=== PATIENT | female | born 1960 | race Caucasian/White ===

== ENCOUNTER → 2016-12-14 | Outpatient (CLI) | payer BC ==
[~2016-12-14] MED LIST: DOXY-233 PO; DULO60CA6 PO; IBUP200T48 PO; MTF500T PO; MULT-974 PO; TRAZ-144 PO
--- NOTE | 2016-12-15 19:54 | Diagnostic Imaging Report ---
Bilateral screening mammogram The current study was also evaluated with a Computer Aided Detection (CAD) system. INDICATION: Screening. No current complaints stated on the questionnaire. COMPARISON: 10/15/2015. FINDINGS: The breasts are composed of heterogeneously dense parenchyma which may decrease mammographic sensitivity. The medial aspect of the breasts is less dense. No developing mass, architectural distortion, or suspicious cluster of calcifications. Allowing for technique and positional differences, no suspicious change is seen. IMPRESSION: No significant change. ACR BI-RADS Category 2: Benign findings. Result letter will be mailed to the patient. Note: At least 10% of breast cancer is not imaged by mammography. Dictated by: Dictated on workstation # [id number]
== END ==
LOC: RAD 15:46
PROVIDERS: ATTEND Nurse Practitioner Community Health
DX: Z12.31 Encounter for screening mammogram for malignant neoplasm of breast (principal)
CPT/HCPCS: 77067

== ENCOUNTER → 2018-03-16 | Outpatient (CLI) | payer BC, OTHER ==
--- NOTE | 2018-03-16 12:55 | Diagnostic Imaging Report ---
INDICATION: Routine screening. Comparison is made with prior study from 12/14/2016 and 10/15/2015. 2-D and 3-D bilateral screening mammography was performed with Computer Aided Detection (CAD) system. FINDINGS: Both breasts are heterogeneously dense, limiting the sensitivity of mammography. The parenchymal pattern appears stable. No mass or malignant appearing microcalcifications are seen. The axillae are unremarkable. IMPRESSION: No mammographic features suspicious for malignancy are identified. ACR BI-RADS Category 1: Negative. Result letter will be mailed to the patient. Note: At least 10% of breast cancer is not imaged by mammography. Dictated by: Dictated on workstation # [id number]
== END ==
LOC: RAD 10:32
PROVIDERS: ATTEND Nurse Practitioner Community Health
DX: Z12.31 Encounter for screening mammogram for malignant neoplasm of breast (principal)
CPT/HCPCS: 77067

== ENCOUNTER → 2019-05-18 | Outpatient (CLI) | payer OTHER ==
--- NOTE | 2019-05-21 11:23 | Diagnostic Imaging Report ---
INDICATION: Routine screening. COMPARISON: 03/16/2018 and 12/14/2016. TECHNIQUE: 2D and 3D bilateral screening mammography was performed with CAD. FINDINGS: Scattered fibroglandular densities are identified bilaterally. The parenchymal pattern is stable. No mass or malignant appearing microcalcifications are seen. The axillae are unremarkable. IMPRESSION: No mammographic features suspicious for malignancy are identified. ACR BI-RADS Category 1: Negative. Result letter will be mailed to the patient. Note: At least 10% of breast cancer is not imaged by mammography. Dictated by: Dictated on workstation # [id number]
== END ==
LOC: RAD 14:54
PROVIDERS: ATTEND Nurse Practitioner Community Health
DX: Z12.31 Encounter for screening mammogram for malignant neoplasm of breast (principal)
CPT/HCPCS: 77067

== ENCOUNTER → 2023-04-20 | Outpatient (CLI) | payer OTHER ==
[~2023-04-20] VITALS: Ht 162.6 cm; Wt 118.2 kg
[~2023-04-20] MED LIST changes: +LIDOCAINE 1% INJ 10 ML VIAL INJ ONE; +LIDOCAINE 1% INJ 10 ML VIAL ONE
--- NOTE | 2023-04-20 13:21 | Diagnostic Imaging Report ---
INDICATION: Left breast mass. Patient presents for ultrasound-guided biopsy. DETAILS OF THE PROCEDURE: The patient was brought to the sonographic suite and placed on the table in the supine position. Ultrasound imaging over the left breast was performed to evaluate for an appropriate entry site. The left breast was then prepped and draped in the usual sterile fashion. A small amount of 1% lidocaine was utilized for local anesthesia. A total of four core biopsies was obtained of the hypoechoic mass at the 7 o'clock location of the left breast utilizing a 14-gauge Achieve needle. A marker clip was then deployed. Hemostasis was obtained using manual compression. The patient tolerated the procedure well and was sent for a post procedure mammogram in satisfactory condition. IMPRESSION: Successful ultrasound-guided core biopsy of the hypoechoic nodule at the 7 o'clock location of the left breast. Pathology results are currently pending. Dictated by: Dictated on workstation # [id number]
--- NOTE | 2023-04-21 10:38 | Diagnostic Imaging Report ---
INDICATION: Left breast nodule, status post ultrasound-guided left breast biopsy. Unilateral left 2-D CC and ML mammography was performed after patient underwent ultrasound-guided left breast biopsy. There is a marker clip lower inner left breast anterior depth. IMPRESSION: Marker clip placement, status post ultrasound-guided left breast biopsy. Dictated by: Dictated on workstation # [id number]
== END ==
LOC: RAD 12:12
PROVIDERS: ATTEND Nurse Practitioner Family
DX: N63.24 Unspecified lump in the left breast, lower inner quadrant (principal)
CPT/HCPCS: 19083; 77065; G0279

== ENCOUNTER 2023-05-19 07:03 | Day surgery (SDC) | payer MEDICAID, OTHER ==
[~2023-05-19] VITALS: Ht 154.9 cm; Wt 76.2 kg
[2023-05-19] VITALS (12 sets, daily range): BP systolic 129–171; BP diastolic 69–107
[~2023-05-19 07:03] MED LIST changes: -ACHD5005 PO; -DOCU-143 PO
[2023-05-19] MEDS ORDERED: ceFAZolin INJECTION 2,000 MG in NS (IVPB) 50 ML 50 ML IV ONE (07:30)
[2023-05-19] MEDS ORDERED: LACTATED RINGERS 1,000 ML 1,000 ML IV PRN (07:30)
--- NOTE | 2023-05-19 07:41 | Progress Note-Pre Operative ---
Pre-Operative Progress Note Date H&P Reviewed: May 19, 2023 Time H&P Reviewed: 07:41 History & Physical: H&P Reviewed, Patient Examed, No changes noted Pre-Operative Diagnosis: left breast infiltrating ductal carcinoma CHRISTINA GOULD DO May 19, 2023 07:41
[2023-05-19] MEDS ORDERED: LIDOCAINE 1% INJ 10 ML VIAL INJ ONE (08:15)
[2023-05-19] MEDS ORDERED: LIDOCAINE/EPI 1%-1:200,000 (XYLOCAINE) 30 ML VIAL ONE (12:23)
[2023-05-19] MEDS ORDERED: LIDOCAINE/EPI 1%-1:200,000 (XYLOCAINE) 30 ML VIAL INJ ONE (12:26)
[2023-05-19] MEDS ORDERED: SEVOFLURANE (ULTANE) 15 ML INHAL SOLN ONE ×2 (12:37→14:12)
[2023-05-19] MEDS ORDERED: proPOfol INJECTION 200 MG/20 ML VIAL IV ONE (12:37)
[2023-05-19] MEDS ORDERED: LIDOCAINE PF 2% 5 ML VIAL ONE (12:37)
[2023-05-19] MEDS ORDERED: fentaNYL INJECTION 100 MCG/2 ML VIAL ONE (12:38)
[2023-05-19] MEDS ORDERED: MIDAZOLAM INJ 2 MG/2 ML VIAL ONE (12:38)
--- NOTE | 2023-05-19 12:38 | Diagnostic Imaging Report ---
INDICATION: Left breast carcinoma. The patient is status post ultrasound-guided left breast hookwire localization. Unilateral left 2-D CC and ML mammography was performed. There is a hookwire entering from the medial left breast adjacent to the marker clip in the medial left breast. IMPRESSION: Hookwire localization left breast, as described. Dictated by: Dictated on workstation # [id number]
[2023-05-19] MEDS ORDERED: SUFENTANIL 50 MCG/ML IV ONE (12:40)
--- NOTE | 2023-05-19 14:28 | Anesthesia-General Post-Op ---
General Patient Condition Mental Status/LOC: Same as Preop Cardiovascular: Satisfactory Nausea/Vomiting: Absent Respiratory: Satisfactory Pain: Controlled Complications: Absent Post Op Complications Complications None Follow Up Care/Instructions Patient Instructions None needed. Anesthesia/Patient Condition Patient Condition Patient is doing well, no complaints, stable vital signs, no apparent adverse anesthesia problems. No complications reported per nursing. GUILLERMO ROACH CRNA May 19, 2023 14:28
[2023-05-19] MEDS ORDERED: morphine INJ 10 MG/ML 1ML (SYR OR VIAL) IVP ONE (14:30)
[2023-05-19] MEDS ORDERED: MEPERIDINE INJ 50 MG/ML VIAL IVP ONE (14:30)
[2023-05-19] MEDS ORDERED: ONDANSETRON INJECTION 4 MG/2 ML (SDV) IVP PRN (14:30)
--- NOTE | 2023-05-19 14:38 | Diagnostic Imaging Report ---
INDICATION: Left breast carcinoma, status post lumpectomy. Specimen radiograph was submitted. The hookwire as well as a marker clip are located within the specimen. IMPRESSION: Specimen radiograph, as described. Dictated by: Dictated on workstation # [id number]
[2023-05-19] MEDS ORDERED: morphine INJ 10 MG/ML 1ML (SYR OR VIAL) ONE (14:53)
[2023-05-19] MEDS ORDERED: DOCU-143 PO (15:07)
[2023-05-19] MEDS ORDERED: ACHD5005 PO (15:07)
--- NOTE | 2023-05-19 15:09 | Discharge Inst-Simple/Standard ---
Discharge Inst-Standard Discharge Medications New, Converted or Re-Newed RX: Transmitted to Pharmacy Patient Instructions/Follow Up Plan of Care/Instructions/FU: 2 weeks Meche Activity as Tolerated: No Discharge Diet: Regular Diet Other Inst to Patient Follow up Appt: Make appointment for 2 week. Instructions: No lifting greater than 10 pounds. No strenuous activity. May shower in 24 hours, no tub bath or soaking. Use incentive spirometer at home as directed. No Smoking Wear sports bra daily and keep breasts supported. Skin/Wound Care: You have special glue over your incision that will fall off on it's own. Symptoms to Report: Appetite Changes, Extremity Discoloration, Numbness/Tingling, Swelling Increased, Bleeding Excessive, Eyesight Changes, Pain Increased, Urine Color Change, Constipation(Persistent), Fever over 101 degree F, Pain/Pressure in chest, Urinating Difficulty, Cough Up/Vomit Blood, Heart Beat Irreg/Pounding, Pain/Pressure in jaw, Vaginal Bleeding Increase, Cramps in feet or legs, Lightheadedness, Pain/Pressure in shoulder, Diarrhea(Persistent), Memory Changes Suddenly, Questions/Concerns, Weight gain consecutive days, Dizziness/Fainting, Nausea/Vomiting, Shortness of Breath, Weight gain over 2 pounds If questions or concerns contact your physician Or seek help at emergency department. CHRISTINA GOULD DO May 19, 2023 15:09
--- NOTE | 2023-05-21 07:13 | OPERATIVE REPORT ---
DATE OF SERVICE: 05/19/2023 PREOPERATIVE DIAGNOSIS: Infiltrating ductal carcinoma of the left breast. POSTOPERATIVE DIAGNOSIS: Infiltrating ductal carcinoma of the left breast. PROCEDURE: Left breast lumpectomy, wire localized with sentinel node biopsy. SURGEON: Cisco Mcgregor DO ANESTHESIA: General. ESTIMATED BLOOD LOSS: Minimal. COMPLICATIONS: None. INDICATIONS: The patient is a 62-year-old female with left breast cancer. She understands risks and benefits of procedure and wished to proceed. Consent was signed in chart. DESCRIPTION OF PROCEDURE: The patient was taken to the operating suite. She was prepped and draped in sterile fashion. Timeout was performed. A Bharaht counter was used to isolate local involvement and prior to incision, methylene blue injected, 4 mL total, 1 mL in four locations and near the areolar complex. Once Bharath counter found hot spot, a #15 blade scalpel was used to make an incision after local anesthetic was infiltrated. Cautery was used to dissect down through subcutaneous tissues in the left axilla and the guidewire was used to continue to isolate node. Hemostats used to dissect down through subcutaneous tissues when the node was encountered. This was able to grasp and started to be elevated and cautery used to dissect around it, removing a large node in its entirety. In-vivo count on the node was 1651. The-ex vivo count was 1743. No other counts within 10% of this area present. No other palpable nodes present within the left axilla. The wound was then irrigated with sterile water. The subcutaneous tissues were then reapproximated using 3-0 Vicryl. Skin was then closed using 4-0 Monocryl in running subcuticular fashion. Skin Affix was placed over that incision. The patient then had local anesthetic infiltrated on the left breast near the wire. A #15 blade scalpel was used to make a skin incision incorporating the wire into the incision. Skin flaps were made with cautery around the wire and then circumferentially following the wire down until the entire wire and breast mass was completely excised. This was tagged with a double suture anteriorly, the short suture superiorly and long suture lateral. The wound was irrigated with copious amounts of irrigation. Hemostasis was achieved. Clips were placed within the cavity where the excision was performed. The subcutaneous tissues then reapproximated using 3-0 Vicryl. The skin was then closed using 4-0 Monocryl in running subcuticular fashion. Skin Affix was then placed over the incisions. The patient tolerated the procedure well without any complications. A sterile bandage was applied. Job ID: [id number] DocumentID: [id number] Dictated Date: 05/20/2023 22:45:42 Steam Oven Operator Date: 05/21/2023 07:11:00 Dictated By: DO SINCERE GOMEZ
== END 2023-05-19 16:30 | disposition home or self-care (01) ==
LOC: SDC 07:03
PROVIDERS: ATTEND Surgery
DX: C50.912 Malignant neoplasm of unspecified site of left female breast (principal); E66.9 Obesity, unspecified; Z68.31 Body mass index [BMI] 31.0-31.9, adult
CPT/HCPCS: 76098; 82947; 87081; 88307; 88342

== ENCOUNTER → 2023-05-19 | Outpatient (CLI) | payer MEDICAID, OTHER ==
[~2023-05-19] MED LIST changes: +ACHD5005 PO; +CALC-308 PO; +CHOL1LIQ MC; +DOCU-143 PO; -LIDOCAINE 1% INJ 10 ML VIAL INJ ONE; -LIDOCAINE 1% INJ 10 ML VIAL ONE; +LISI10TA25 PO; +TUME1CAP PO; +VITA-189 PO
--- NOTE | 2023-05-19 09:20 | Diagnostic Imaging Report ---
INDICATION: Left breast carcinoma. 1.0 mCi technetium 99m Lymphoseek was injected in 4 separate aliquots in a left periareolar distribution. Imaging was performed demonstrating migration of activity into the left axilla. This was marked on the patient's skin. IMPRESSION: Left breast lymphoscintigraphy for identification of sentinel node. Dictated by: Dictated on workstation # [id number]
== END ==
LOC: CARD 08:00
PROVIDERS: ATTEND Surgery
DX: C50.912 Malignant neoplasm of unspecified site of left female breast (principal)
CPT/HCPCS: 78195

== ENCOUNTER → 2023-05-19 | Outpatient (CLI) | payer MEDICAID, OTHER ==
--- NOTE | 2023-05-19 10:18 | Diagnostic Imaging Report ---
INDICATION: Left breast carcinoma. Patient presents for ultrasound-guided hookwire localization. Patient was brought to the sonographic room placed on the table in the supine position. Ultrasound imaging of the left breast was performed to evaluate appropriate entry site. The left breast was then prepped and draped in usual sterile fashion. Small amount 1% lidocaine was utilized for local anesthesia. Localizing needle was advanced into the left breast at the 7 o'clock location and needle was placed through the hypoechoic nodule previously biopsied. The hookwire was then placed through the needle and deployed. The needle was then removed over the hookwire. The hookwire was affixed to the patient's skin. Patient tolerated the procedure well and was sent to same day surgery in satisfactory condition. IMPRESSION: Successful ultrasound guided hookwire localization of a hypoechoic nodule 7 o'clock location left breast. Dictated by: Dictated on workstation # [id number]
== END ==
LOC: RAD 09:00
PROVIDERS: ATTEND Surgery
DX: C50.912 Malignant neoplasm of unspecified site of left female breast (principal)
CPT/HCPCS: 19285

== ENCOUNTER 2023-06-09 13:10 | Outpatient (RCR) | payer MEDICAID ==
[~2023-06-09 13:10] MED LIST changes: +ACHD5005 PO; +DOCU-143 PO
== END 2023-06-14 | disposition home or self-care (01) ==
LOC: ONC 13:10
PROVIDERS: ATTEND Internal Medicine Hematology & Oncology
DX: C50.912 Malignant neoplasm of unspecified site of left female breast (principal); T81.40XD Infection following a procedure, unspecified, subsequent encounter; E66.9 Obesity, unspecified; K76.0 Fatty (change of) liver, not elsewhere classified; R16.1 Splenomegaly, not elsewhere classified; Z90.12 Acquired absence of left breast and nipple
CPT/HCPCS: 99204

== ENCOUNTER 2023-06-12 09:19 | Outpatient (RCR) | payer MEDICAID ==
[2023-06-11 09:30] VITALS: BP 158/95
[~2023-06-12] VITALS: Wt 76.2 kg
[2023-06-12 09:25] VITALS: BP 175/91
== END 2023-06-14 | disposition home or self-care (01) ==
LOC: SDC 09:19
PROVIDERS: ATTEND Surgery
DX: Z48.01 Encounter for change or removal of surgical wound dressing (principal)
CPT/HCPCS: 99212

== ENCOUNTER 2023-07-08 09:05 | Outpatient (RCR) | payer MEDICAID ==
[2023-06-18 10:56] VITALS: BP 135/82
[2023-06-19 09:50] VITALS: BP 158/88
[2023-06-25 10:17] VITALS: BP 145/84
[2023-06-26 10:03] VITALS: BP 141/88
[2023-07-02 09:30] VITALS: BP 156/88
[~2023-07-08] VITALS: Wt 76.2 kg
[2023-07-08 09:16] VITALS: BP 144/82
[2023-07-08 09:18] VITALS: BP 157/82
[2023-07-09 08:45] VITALS: BP 160/88
== END 2023-07-14 | disposition home or self-care (01) ==
LOC: SDC 09:05
PROVIDERS: ATTEND Surgery
DX: Z48.01 Encounter for change or removal of surgical wound dressing (principal)
CPT/HCPCS: 99211; 99212